=== PATIENT | female | born 1935 | race Caucasian/White ===

== ENCOUNTER → 2017-08-20 12:06 | Outpatient (CLI) | payer MEDICARE, BC ==
[2013-04-08 17:57] VITALS: BMI 27.5
[~2017-08-20 12:06] MED LIST: BAYER CHEWABLE81 MG PO; CALTRATE-600600 MG PO; CATAPRES0.1 MG; CATAPRES0.1 MG PO; CELEXA20 MG PO; FOLATE0.4 MG PO; K-DUR20 MEQ; MACROBID100 MG PO; MILK OF MAGNESI30 ML PO; NEURONTIN 300300 MG; NEURONTIN 300300 MG PO; NEURONTIN600 MG; NORVASC5 MG PO; PREMARIN45 GM VG; SEPTRA DS TABLE1 TAB PO; SYNTHROID75 MCG PO; VALIUM5 MG
== END | disposition home or self-care (01) ==
LOC: D.RAD 12:06
DX: R13.10 Dysphagia, unspecified (principal)

== ENCOUNTER 2019-01-26 22:39 | Inpatient (IN) | payer MEDICARE, BC ==
[~2019-01-26] VITALS: Ht 162.6 cm; Wt 81.6 kg
[~2019-01-26 22:39] MED LIST changes: -VALIUM5 MG; +VALIUM5 MG PO
[2019-01-26 22:51] VITALS: BP 132/91
[2019-01-26 23:01] VITALS: BP 126/59
[2019-01-27] VITALS (7 sets, daily range): BP systolic 124–149; BP diastolic 46–58; Ht 162.6 cm; Wt 81.6 kg
[2019-01-27] LABS: BASOPHILS 0.1 % (0-2); EOSINOPHILS 0 % (0-7); HEMATOCRIT 38.8 % (36.0-48.0); HEMOGLOBIN 12.6 g/dL (12-16); IMMATURE GRANULOCYTES 0.2 % (0-5); LYMPHOCYTES 11.1 % (15-50); MCH 29.9 pg (26.0-34.0); MCHC 32.5 g/dL (31.0-37.0); MCV 92.2 fL (80.0-100.0); MEAN PLATELET VOLUME 10.5 fL (7.4-10.4); MONOCYTES 8.8 % (2-11); NEUTROPHILS 79.8 % (40-80); PLATELET COUNT 166 10x3/uL (130-400); RBC 4.21 10x6/uL (4.00-5.40); RDW 14.2 % (11.5-14.5); WBC 9.1 10x3/uL (4.8-10.8)
[2019-01-27 00:07] LABS: APTT 26.2 SECONDS (22.8-39.4); INR 1.09 (0.85-1.17); PROTIME 13.6 SECONDS (11.6-15.0)
[2019-01-27 00:11] LABS: ALBUMIN 3.2 g/dL (3.4-5.0); ANION GAP 9.7 mmol/L (8-16); BILIRUBIN - TOTAL 0.43 mg/dL (0.2-1.3); CALCIUM 8.7 mg/dL (8.5-10.1); CARBON DIOXIDE 28.2 mmol/L (21.0-32.0); POTASSIUM - SERUM 3.9 mmol/L (3.5-5.1); PROTEIN - SERUM 6.8 g/dL (6.4-8.2)
[2019-01-27] MEDS ORDERED: ACETAMINOPHEN325 MG PO (02:20)
[2019-01-27] MEDS ORDERED: KEFLEX250 MG PO (02:34)
[2019-01-27] MEDS ORDERED: NORVASC5 MG PO (02:35)
[2019-01-27] MEDS ORDERED: COZAAR100 MG PO (02:35)
[2019-01-27] MEDS ORDERED: LUBRICANT EYE D15 M2 EACH EYE (02:38)
[2019-01-27] MEDS ORDERED: ASPER-FLEX85 GM TOPICAL (02:39)
[2019-01-27] MEDS ORDERED: BUSPAR10 MG PO (02:40)
[2019-01-27] MEDS ORDERED: BUSPAR5 MG PO (02:41)
[2019-01-27] MEDS ORDERED: VITAMIN B-121000 MCG IM (02:44)
[2019-01-27] MEDS ORDERED: EFFEXOR XR75 MG PO (02:45)
[2019-01-27] MEDS ORDERED: HUMULIN R100 U/ML SC (02:47)
[2019-01-27] MEDS ORDERED: HYDROCHLOROTHIA25 MG PO (02:48)
--- NOTE | 2019-01-27 15:55 | MORECARE ---
CASE MANAGEMENT DISCHARGE SUMMARY PATIENT: FARIDA COOPER UNIT: [id number] ADM DATE: 01/27/19 AGE: 83 : 34 SEX: F ROOM/BED: D.2234 AUTHOR: LIZA BRASWELL PHYSICIAN: REFERRING PHYSICIAN: NORMA BOYLE MD DATE OF SERVICE: 01/27/19 Discharge Plan Patient Name: FARIDA COOPER Facility: [facility]:[place] : 1935 Planned Disposition: Nursing Facility [facility] Cert Anticipated Discharge Date: Discharge Date: Expected LOS: Initial Reviewer: [id number] Initial Review Date: 01/27/2019 Generated: 01/27/19 4:54 pm Comments DCP- Discharge Planning Updated by [id number]: Brook Chris on 01/27/19 2:[address] Patient Name: FARIDA COOPER Admission Status: ER Accout number: [id number] Admission Date: 01-27-2019 : 1935 Admission Diagnosis: Attending: NORMA BOYLE Current LOS: 1 Anticipated DC Date: Planned Disposition: Nursing Facility [facility] Cert Primary Insurance: MEDICARE A & B Discharge Planning Comments: CM met with patient and her daughter, Thomas. Thomas states she is also her POA when her brother is unable to be. She states her brother is not able to be POA at this time. States her mother has lived at [facility] in [facility] for about a year now. States she is able to sit in a wheelchair. States she is completely dependent on the nursing staff there. States the discharge plan is to return to [facility]. I informed her that if she needs therapy, they may have her admitted to the skilled therapy side of [facility] on discharge and she is agreeable to that. CM will continue to follow and assist with discharge planning/needs. Epic Willow Specialist: Brook Chris DCPIA - Discharge Planning Initial Assessment Updated by [id number]: Brook Chris on 01/27/19 3:51 pm * Is the patient Alert and Oriented? No * How many steps to enter\exit or inside your home? 0/0 * PCP Dr. Boyle outside of [place] Dr. Hawley at [facility] * Preadmission Environment Snf Custodial * Facility Name [facility] * ADLs Total Dependent * Other Equipment All equipment provided by [facility] * List name and contact numbers for known caregivers / representatives who currently or will assist patient after discharge: Thomas Laurent - DTR - [phone] * Verbal permission to speak to the caregivers and representatives has been obtained from the patient. N/A * Community resources currently utilized None * Additional services required to return to the preadmission environment? No * Can the patient safely return to the preadmission environment? Yes * Has this patient been hospitalized within the prior 30 days at any hospital? No Coverage Notice Reviewer: [id number] Ramona Chris Notice Issued Date-Time: 01/27/2019 15:46 Notice Type: Patient Choice Letter Notice Delivered To: Family Member Relationship to Patient: Daughter Scrap Breaker Name: Thomas Laurent Delivery Method: HAND - Hand Delivered Naida Days: Prior Verbal Notification: Recipient Understood Notice: Yes Recipient Signature: Yes Med Rec Note Co-signed by Attending: Coverage Notice Comment: [facility] for [facility] Patient Name: FARIDA COOPER Page [id number] at 1555 All edits/amendments must be made on the electronic document DICTATION DATE: 01/27/191553 GRADES 9 12 TUTOR: MAU 01/27/191553 RPT#: [id number] DC DATE: STATUS: ADM IN [facility] [address] [place] [address] END OF REPORT
[2019-01-27 23:07] LABS: APPEARANCE CLOUDY (CLEAR); BACTERIA MANY /hpf (NONE SEEN); BILIRUBIN NEGATIVE (NEGATIVE); COLOR YELLOW (YELLOW); EPITHELIAL CELLS NSEEN /hpf (0-5); GLUCOSE NEGATIVE (NEGATIVE); KETONE NEGATIVE (NEGATIVE); NITRITE POSITIVE (NEGATIVE); PROTEIN NEGATIVE (NEGATIVE); SPECIFIC GRAVITY 1.015 (1.005-1.020); UROBILINOGEN NORMAL (NORMAL); WHITE CELLS - URINE >50 /hpf (0-5)
[2019-01-27 23:08] LABS: MUCUS >1+ /lpf (NONE SEEN)
[2019-01-28] VITALS (11 sets, daily range): BP systolic 125–193; BP diastolic 48–73
[2019-01-28 07:08] LABS: CALC OSMOLALITY 285 mosm/kg (275-300); CALCIUM 8.5 mg/dL (8.5-10.1); CARBON DIOXIDE 23.6 mmol/L (21.0-32.0); CHLORIDE - SERUM 106 mmol/L (98-107); CREATININE - SERUM 0.7 mg/dL (0.6-1.3); GLUCOSE 130 mg/dL (74-106); POTASSIUM - SERUM 4.8 mmol/L (3.5-5.1); SODIUM 141 mmol/L (136-145); T4 THYROXIN - FREE 1.36 ng/dL (0.76-1.46); THYROID STIMULATING HORMONE 0.81 uIU/mL (0.36-3.74); UREA NITROGEN 22 mg/dL (7-18); eGFR NON AFRICAN AMERICAN 84 mL/min (90-120)
[2019-01-28 07:19] LABS: BASOPHILS 0.2 % (0-2); EOSINOPHILS 0.5 % (0-7); HEMATOCRIT 38.5 % (36.0-48.0); HEMOGLOBIN 12.5 g/dL (12-16); IMMATURE GRANULOCYTES 0.4 % (0-5); LYMPHOCYTES 11.1 % (15-50); MCH 30.6 pg (26.0-34.0); MCHC 32.5 g/dL (31.0-37.0); MCV 94.1 fL (80.0-100.0); MEAN PLATELET VOLUME 11.6 fL (7.4-10.4); MONOCYTES 11.4 % (2-11); NEUTROPHILS 76.4 % (40-80); RBC 4.09 10x6/uL (4.00-5.40); RDW 14.2 % (11.5-14.5); WBC 8.5 10x3/uL (4.8-10.8)
[2019-01-28 07:20] LABS: PLATELET COUNT 120 10x3/uL (130-400)
--- NOTE | 2019-01-28 08:25 | HP ---
PATIENT: FARIDA COOPER MEDICAL RECORD: [id number] ACCOUNT: [id number] LOCATION:D.MS Mims4 : [birth year] ADMISSION DATE: 01/27/19 PCP: NORMA COPELAND MD HISTORY AND PHYSICAL EXAMINATION REASON FOR ADMISSION: Fall with right arm pain. HISTORY OF PRESENT ILLNESS: The patient is an 83-year-old female with history of transverse myelitis and Alzheimer dementia. She is full care at [facility]. She does not usually ambulate. She apparently fell at the longterm last night and was brought to the ED after a mobile x-ray showed a right proximal humeral fracture. There has been no recent fever. Her daughter states she has been in fairly good health except for her chronic illnesses. She has had no recent fever. 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 PAST SURGICAL HISTORY: Open reduction and internal fixation of the right radius in September of 2010. FAMILY HISTORY: One brother and sister with cancer. SOCIAL ISSUES: She is in [facility] for many years. She has need for total ADL help and assistance. She walks minimally. She has a daughter living in [facility], who cares for her. She is a nonsmoker and nondrinker. ALLERGIES: PENICILLIN, QUINOLONE, SULFA, SULFONAMIDE, DEMEROL, PROCHLORPERAZINE, COMPAZINE. CURRENT MEDICATIONS: Aspirin 81 mg b.i.d., Caltrate 600 mg b.i.d., Celexa 20 mg daily, clonidine 0.1 mg p.o. b.i.d., folic acid 0.4 mg p.o. b.i.d., K-Dur 10 mEq b.i.d., milk of magnesia 30 cc p.r.n. constipation, Neurontin 300 mg p.o. t.i.d., Norvasc 5 mg daily, Premarin 0.625 mg vaginal cream applied daily, Synthroid 75 mcg p.o. q.a.m., cephalexin 250 mg p.o. daily, losartan 100 mg p.o. daily, vitamin B12 one cc IM monthly, Valium 2 mg p.o. t.i.d., venlafaxine 75 mg p.o. daily, HCTZ 25 mg p.o. q.a.m., Tylenol 325 mg every 6 hours p.r.n. REVIEW OF SYSTEMS: CONSTITUTIONAL: No recent general fatigue or weight loss. HEENT: No recent visual change, sinus congestion, or sore throat. She has chronic hearing difficulty. RESPIRATORY: No SOB or cough. CARDIAC: No palpitations, chest pain, or increasing edema. GASTROINTESTINAL: No nausea, vomiting, change in stools, blood per rectum. GENITOURINARY: Incontinence. GYNECOLOGICAL: No vaginal bleeding. INTEGUMENT: No recent rash or skin lesions. NEUROLOGIC: She has extremely poor memory. Due to remote stroke, she has weakness in both of her lower extremities. MUSCULOSKELETAL: She has pain in her right proximal humerus currently with HISTORY AND PHYSICAL [id number] FARIDA COOPER N marked edema and bruising. She has crepitus in both knees with flexion and extension. NEUROLOGICAL: She has poor memory. No history of seizures. History of transverse myelitis resulting in gait disturbance. Remote CVA resulting in gait disturbance, poor balance issues. PSYCHIATRIC: No recent depressed mood. PHYSICAL EXAMINATION: VITAL SIGNS: Temperature 97 Fahrenheit orally, pulse 70 and regular, respirations 21, blood pressure 130/91, sat 96% on room air. GENERAL: The patient is awake, pleasant and appears to recognize me. She is unaware of her surroundings. HEENT: Normocephalic. Eyes are clear, nonicteric. Oropharynx unremarkable. NECK: Supple, without bruits. CHEST: Distant breath sounds without wheeze or rales. HEART: Regular rate and rhythm, without MGR. PMI appropriate. BREASTS: Symmetrical. ABDOMEN: Soft and nontender. PELVIC: Deferred. EXTREMITIES: She has marked swelling of the right proximal humerus and some bruising. Pain with any movement. She has had good professor of business administration bilaterally. Lower extremity exam shows 2+ bipedal edema, 1+ pretibial edema to the knees bilaterally. SKIN: No obvious ulceration. NEUROLOGIC: The patient is oriented to person, but not to place and time. She does recognize her daughter and me. She has no obvious motor deficit except for generalized motor weakness. LABORATORY DATA: X-ray shows a right proximal humeral fracture with comminution. Chest x-ray has not been ordered. EKG shows sinus rhythm, poor anterior R-wave, no old EKG to compare. White count is 9000, H&H of 12.6 and 38.6, platelet count is 166,000. Chemistry is normal except for BUN of 33, creatinine of 1. INR is 1.09. UA not ordered. ASSESSMENT: Fall with right proximal humeral fracture, history of cerebrovascular accident with gait disturbance, Alzheimer dementia, hypertension, prerenal azotemia, history of nephrolithiasis, urinary incontinence, hypothyroidism. PLAN: I discussed with daughter the need for orthopedic consultation and possible ORIF. The daughter reiterates her DNR status. She is moderate risk for general anesthesia due to her advanced age, abnormal EKG, though she has no prior known history of myocardial infarction. Dr. Burrows will be consulted. TRANSINT:[id number] Voice Confirmation ID: [id number] DOCUMENT ID: [id number] HISTORY AND PHYSICAL [id number] FARIDA COOPER TIMOTHY MD at 0825 CC: [id number] DICTATION DATE: 01/27/19631 KNITTING DEMONSTRATOR: 01/27/19 0732 ADM IN [facility] [address] [place] [address]
[2019-01-29] VITALS (10 sets, daily range): BP systolic 149–168; BP diastolic 54–74
[2019-01-29 06:17] LABS: BASOPHILS 0.2 % (0-2); EOSINOPHILS 0 % (0-7); HEMATOCRIT 32.3 % (36.0-48.0); HEMOGLOBIN 10.4 g/dL (12-16); IMMATURE GRANULOCYTES 0.2 % (0-5); LYMPHOCYTES 7.4 % (15-50); MCH 29.9 pg (26.0-34.0); MCHC 32.2 g/dL (31.0-37.0); MCV 92.8 fL (80.0-100.0); MONOCYTES 11.5 % (2-11); NEUTROPHILS 80.7 % (40-80); RBC 3.48 10x6/uL (4.00-5.40); WBC 9.5 10x3/uL (4.8-10.8)
[2019-01-29 06:25] LABS: ANION GAP 12.6 mmol/L (8-16); CALCIUM 8.1 mg/dL (8.5-10.1); CARBON DIOXIDE 25.8 mmol/L (21.0-32.0)
[2019-01-29 06:26] LABS: CREATININE - SERUM 0.9 mg/dL (0.6-1.3); PLATELET COUNT 147 10x3/uL (130-400); POTASSIUM - SERUM 3.4 mmol/L (3.5-5.1)
--- NOTE | 2019-01-29 06:53 | OP ---
PATIENT NAME: FARIDA HINSON MEDICAL RECORD: [id number] :34 LOCATION:D.MS Jones2234 ADMISSION DATE:01/27/19 SURGEON: MACARIO REILLY DO DATE OF OPERATION: 01/28/2019 PROCEDURE PERFORMED: Right reverse total shoulder arthroplasty for fracture. PREOPERATIVE DIAGNOSIS: Comminuted displaced right proximal humeral shaft and head fracture. POSTOPERATIVE DIAGNOSIS: Comminuted displaced right proximal humeral shaft and head fracture. INDICATIONS: Ms. Hinson is an 83-year-old demented female who fell 2 nights ago and came to the ER, brought in by her family and made sure she is a DO NOT RESUSCITATE, but they wanted her out of pain and I informed him that due to the fracture being so comminuted, we had very limited options, one of them being reverse total shoulder, would give the most function and decreasing amount of pain but that was risky due to her frail bones. They were okay with that plan and were aware of the risk of infection, bleeding, damage to nerves and vessels and continued loss of function of the right arm, her dominant arm and they signed a consent. SURGEON: Macario Reilly DO DESCRIPTION OF PROCEDURE: The patient was taken to the operative suite after given a block by anesthesia, laid in the supine position, sedated and intubated and placed over on the beach chair and positioned. The right shoulder was then prepped and draped in sterile fashion. She was given 900 mg of clindamycin preoperatively. The right shoulder after being prepped and draped, a timeout was performed and everyone was in agreement with the correct site, side, the patient, and the procedure. The incision then began over the deltopectoral interval. Careful dissection was made down to it. The pec was peeled off of the fracture site. She had a large chunk of bone that had been peeled off there. The humeral shaft went up into the surgical neck as well as a very comminuted rest of the shaft of the proximal humerus that extended up into the greater tuberosity. The subscapularis tendon was tagged, the bicep tendon was tagged 1st and tenodesed to the pec. This was then released and the subscap was tagged and released off the humeral head as well as the supraspinatus. The head was fractured as well through the greater tuberosity and the shaft fracture extended up into the surgical neck. The head was then removed and looking at the shaft and the 4 different pieces of the shaft that was left, we reamed and put a trial in the shaft to see if a stem would be long enough, decided to go with a longer stem, 194 stem to cement in. The glenoid was then exposed and prepared. The labrum was removed and a centering pin was placed and then the drill was made for the baseplate. The baseplate was then packed into place and the center screw was placed, a 25 cm screw. The peripheral screws were then put in at 25 and two 20s; 25 was superior-anterior and the 20s were superior-posterior and inferior- posterior locked in. The glenosphere was then impacted on and then went to work on the shaft. The shaft was reamed to 7 and pushed some cement then was mixed and pushed down the shaft as well as possible and then put it around the implant and held it in 20 degrees of retroversion and an estimate on the height due to the fracture fragment was very difficult, held in position while the cement hardened and then cables had been passed prior to this around the comminuted proximal shaft fracture cable. Once cement harden OPERATIVE REPORT [id number] FARIDA HINSON N was tightened down over the shaft and then a second cable was used more proximal to that at 16 and 20 was more distal. Once these were tightened down and held, the large fracture fragments around the stem at that time reduced in nicely where part of the pec was attached to. The trial was then put on and reduced, had very good tension on the conjoined tendon as well as the deltoid and good range of motion was very stable. It could not shuck and be dislocated. This was then dislocated and removed and then the actual implant was used to constraine poly and this was impacted into place and then reduced and had very good range of motion, it is very stable and the conjoined tendon was in good tension as well. The site was then thoroughly irrigated. Any bone fragments that were left removed at that time and then a Surgicel powder and vancomycin and tobramycin powder were placed in the wound and the interval was closed, deltopectoral interval was closed with #1 Vicryl in simple fashion and then 2-0 Vicryl in interrupted fashion and then Prineo glue was placed on the skin. Telfa and Tegaderm were then placed over that. After the glue had dried, the patient was then awakened, put in a sling and taken to recovery in stable condition. Blood loss approximately 400 mL. COMPLICATIONS: None. TRANSINT:[id number] Voice Confirmation ID: [id number] DOCUMENT ID: [id number] MACARIO REILLY DO at 0653 CC: [id number] DICTATION DATE: 01/28/191843 RINKMAN: 01/29/19 0023 ADM IN [facility] [address] [place] [address]
[2019-01-30] VITALS: BP 161/71
[2019-01-30 03:00] VITALS: BP 122/77
[2019-01-30 05:43] LABS: HEMOGLOBIN 10.5 g/dL (12-16); MCHC 32.8 g/dL (31.0-37.0); MCV 91.4 fL (80.0-100.0); MEAN PLATELET VOLUME 10.8 fL (7.4-10.4); RBC 3.5 10x6/uL (4.00-5.40); RDW 14.1 % (11.5-14.5); WBC 11.3 10x3/uL (4.8-10.8)
[2019-01-30 09:10] VITALS: BP 185/61
[2019-01-30 13:33] VITALS: BP 153/63
[2019-01-30 16:49] VITALS: BP 155/68
[2019-01-30 18:00] VITALS: BP 139/64
[2019-01-31 01:06] VITALS: BP 145/61
[2019-01-31 05:52] LABS: ANION GAP 11.5 mmol/L (8-16); CALCIUM 8.1 mg/dL (8.5-10.1); CARBON DIOXIDE 26.8 mmol/L (21.0-32.0); CREATININE - SERUM 0.8 mg/dL (0.6-1.3); POTASSIUM - SERUM 3.3 mmol/L (3.5-5.1)
[2019-01-31 05:56] VITALS: BP 150/60
[2019-01-31 07:22] LABS: BASOPHILS 0.3 % (0-2); EOSINOPHILS 0 % (0-7); HEMATOCRIT 29.2 % (36.0-48.0); HEMOGLOBIN 9.5 g/dL (12-16); IMMATURE GRANULOCYTES 0.1 % (0-5); MCH 30.1 pg (26.0-34.0); MCHC 32.5 g/dL (31.0-37.0); MCV 92.4 fL (80.0-100.0); MEAN PLATELET VOLUME 10.9 fL (7.4-10.4); MONOCYTES 11.8 % (2-11); NEUTROPHILS 73.8 % (40-80); PLATELET COUNT 161 10x3/uL (130-400); RBC 3.16 10x6/uL (4.00-5.40); RDW 14.2 % (11.5-14.5); WBC 7.7 10x3/uL (4.8-10.8)
[2019-01-31 09:13] VITALS: BP 161/63
[2019-01-31 12:00] VITALS: BP 149/65
--- NOTE | 2019-01-31 12:58 | MORECARE ---
CASE MANAGEMENT DISCHARGE SUMMARY PATIENT: FARIDA COOPER UNIT: [id number] ADM DATE: 01/27/19 AGE: 83 : 34 SEX: F ROOM/BED: D.2234 AUTHOR: LIZA BRASWELL PHYSICIAN: REFERRING PHYSICIAN: NORMA BOYLE MD DATE OF SERVICE: 01/31/19 Discharge Plan Patient Name: FARIDA COOPER Facility: [facility]:[place] : 1935 Planned Disposition: Nursing Facility T[facility] Cert Anticipated Discharge Date: Discharge Date: Expected LOS: Initial Reviewer: [email or web address] Initial Review Date: 01/27/2019 Generated: 01/31/19 1:58 pm Comments DCP- Discharge Planning Updated by [id number]: Brook Chris on 01/27/19 2:[address] Patient Name: FARIDA COOPER Admission Status: ER Accout number: [id number] Admission Date: 01-27-2019 : 1935 Admission Diagnosis: Attending: NORMA BOYLE Current LOS: 1 Anticipated DC Date: Planned Disposition: Nursing Facility [facility] Cert Primary Insurance: MEDICARE A & B Discharge Planning Comments: CM met with patient and her daughter, Thomas. Thomas states she is also her POA when her brother is unable to be. She states her brother is not able to be POA at this time. States her mother has lived at [facility] in [facility] for about a year now. States she is able to sit in a wheelchair. States she is completely dependent on the nursing staff there. States the discharge plan is to return to [facility]. I informed her that if she needs therapy, they may have her admitted to the skilled therapy side of [facility] on discharge and she is agreeable to that. CM will continue to follow and assist with discharge planning/needs. Veneer Sheet Repairer: Brook Chris DCPIA - Discharge Planning Initial Assessment Updated by [id number]: Brook Chris on 01/27/19 3:51 pm * Is the patient Alert and Oriented? No * How many steps to enter\exit or inside your home? 0/0 * PCP Dr. Boyle outside of [place] Dr. Hawley at [facility] * Preadmission Environment Fpc Detention * Facility Name [facility] * ADLs Total Dependent * Other Equipment All equipment provided by [facility] * List name and contact numbers for known caregivers / representatives who currently or will assist patient after discharge: Thomas Laurent - DTR - [phone] * Verbal permission to speak to the caregivers and representatives has been obtained from the patient. N/A * Community resources currently utilized None * Additional services required to return to the preadmission environment? No * Can the patient safely return to the preadmission environment? Yes * Has this patient been hospitalized within the prior 30 days at any hospital? No External Providers External Provider: [facility] Next Contact Date: Service Request Date: Service Type: Resolution: Reviewer: Comments: Coverage Notice Reviewer: [id number] Ramona Chris Notice Issued Date-Time: 01/27/2019 15:46 Notice Type: Patient Choice Letter Notice Delivered To: Family Member Relationship to Patient: Daughter Plastic Roller Name: Thomas Laurent Delivery Method: HAND - Hand Delivered Naida Days: Prior Verbal Notification: Recipient Understood Notice: Yes Recipient Signature: Yes Med Rec Note Co-signed by Attending: Coverage Notice Comment: [facility] for [facility] Last DP export: 01/27/19 2:54 p Patient Name: FARIDA COOPER Page [id number] at 1258 All edits/amendments must be made on the electronic document DICTATION DATE: 01/31/19 1257 RESIDENTIAL CAREGIVER: MAU 01/31/19 1257 RPT#: [id number] DC DATE: STATUS: ADM IN [facility] [address] [place] [address] END OF REPORT
[2019-01-31 21:14] VITALS: BP 173/69
[2019-02-01 05:02] VITALS: BP 153/57
[2019-02-01 06:41] LABS: ANION GAP 9.4 mmol/L (8-16); CALCIUM 8.8 mg/dL (8.5-10.1); CARBON DIOXIDE 30.1 mmol/L (21.0-32.0); CREATININE - SERUM 0.8 mg/dL (0.6-1.3); POTASSIUM - SERUM 3.5 mmol/L (3.5-5.1)
[2019-02-01] MEDS ORDERED: MACROBID100 MG PO (07:02)
[2019-02-01] MEDS ORDERED: NORCO-10 PO (07:04)
[2019-02-01] MEDS ORDERED: HYDROCHLOROTH12.5 M1 PO (07:04)
[2019-02-01 08:53] VITALS: BP 183/70
--- NOTE | 2019-02-01 09:48 | MORECARE ---
CASE MANAGEMENT DISCHARGE SUMMARY PATIENT: FARIDA COOPER UNIT: [id number] ADM DATE: 01/27/19 AGE: 83 : 34 SEX: F ROOM/BED: D.2234 AUTHOR: LIZA BRASWELL PHYSICIAN: REFERRING PHYSICIAN: NORMA BOYLE MD DATE OF SERVICE: 02/01/19 Discharge Plan Patient Name: FARIDA COOPER Facility: [facility]:[place] : 1935 Planned Disposition: Nursing Facility [facility] Cert Anticipated Discharge Date: Discharge Date: Expected LOS: Initial Reviewer: [id number] Initial Review Date: 01/27/2019 Generated: 02/01/19 10:48 am Comments DCP- Discharge Planning Updated by [email or web address]: Brook Aliceawill on 02/01/19 8:[address] Received discharge order. I called [facility] and spoke to Vaishali. She will need to go via ambulance, she has not sat up, except to side of bed with max assist X2 and unsteady sitting balance. DC clinical faxed to [facility], she will go to a skilled bed. Daughter is at bedside, IMM explained and signed. CM will continue to follow and assist with discharge planning/needs. DCP- Discharge Planning Updated by [id number]: Brook Aliceawill on 01/31/19 11:[address] I called [facility] and spoke to Vaishali and informed her that the physician has ordered consult for skilled at [facility] (she is currently in a terminal worker bed). Vaishali states that they will probably place in senior care when ready to come back to facility. Updated clinical faxed. CM will continue to follow and assist with discharge planning/needs. DCP- Discharge Planning Updated by [id number]: Brook Aliceawill on 01/27/19 2:[address] Patient Name: FARIDA COOPER Admission Status: ER Accout number: [id number] Admission Date: 01-27-2019 : 1935 Admission Diagnosis: Attending: NORMA BOYLE Current LOS: 1 Anticipated DC Date: Planned Disposition: Nursing Facility [facility] Cert Primary Insurance: MEDICARE A & B Discharge Planning Comments: CM met with patient and her daughter, Thomas. Thomas states she is also her POA when her brother is unable to be. She states her brother is not able to be POA at this time. States her mother has lived at [facility] in [facility] for about a year now. States she is able to sit in a wheelchair. States she is completely dependent on the nursing staff there. States the discharge plan is to return to [facility]. I informed her that if she needs therapy, they may have her admitted to the skilled therapy side of [facility] on discharge and she is agreeable to that. CM will continue to follow and assist with discharge planning/needs. Director Part: Brook Chris DCPIA - Discharge Planning Initial Assessment Updated by [email or web address]: Brook Chris on 01/27/19 3:51 pm * Is the patient Alert and Oriented? No * How many steps to enter\exit or inside your home? 0/0 * PCP Dr. Boyle outside of [place] Dr. Hawley at [facility] * Preadmission Environment Sales Representative [facility] * Facility Name [facility] * ADLs Total Dependent * Other Equipment All equipment provided by [facility] * List name and contact numbers for known caregivers / representatives who currently or will assist patient after discharge: Thomas Laurent - DTR - [phone] * Verbal permission to speak to the caregivers and representatives has been obtained from the patient. N/A * Community resources currently utilized None * Additional services required to return to the preadmission environment? No * Can the patient safely return to the preadmission environment? Yes * Has this patient been hospitalized within the prior 30 days at any hospital? No Coverage Notice Reviewer: [id number] Ramona Chris Notice Issued Date-Time: 01/27/2019 15:46 Notice Type: Patient Choice Letter Notice Delivered To: Family Member Relationship to Patient: Daughter Clearing Distribution Clerk Name: Thomas Laurent Delivery Method: HAND - Hand Delivered Naida Days: Prior Verbal Notification: Recipient Understood Notice: Yes Recipient Signature: Yes Med Rec Note Co-signed by Attending: Coverage Notice Comment: [facility] for [facility] Reviewer: [id number] Ramona Chris Notice Issued Date-Time: 02/01/2019 9:42 Notice Type: IM Discharge Notice Notice Delivered To: Family Member Relationship to Patient: Daughter Clearing Distribution Clerk Name: Thomas Laurent Delivery Method: HAND - Hand Delivered Naida Days: Prior Verbal Notification: Recipient Understood Notice: Yes Recipient Signature: Yes Med Rec Note Co-signed by Attending: Coverage Notice Comment: IMM delivered, signed, given, copy placed in MR Last DP export: 01/31/19 11:58 a Patient Name: FARIDA COOPER Page 41141 at 0948 All edits/amendments must be made on the electronic document DICTATION DATE: 02/01/19947 DREDGE CAPTAIN: MAU 02/01/19947 RPT#: [id number] DC DATE: STATUS: ADM IN [facility] [address] [place] [address] END OF REPORT
== END 2019-02-01 11:58 | DRG 483 ==
LOC: D.ER 22:39 → D.MS 01-27 00:42
PROVIDERS: Emergency Medicine; Orthopaedic Surgery; ADMIT Family Medicine; ATTEND Family Medicine
PROC: 0RRJ00Z Replacement of Right Shoulder Joint with Reverse Ball and Socket Synthetic Substitute, Open Approach (ICD-10-PCS; principal; 2019-01-28 15:15)
DX: S42.351A Displaced comminuted fracture of shaft of humerus, right arm, initial encounter for closed fracture (principal); N39.0 Urinary tract infection, site not specified; G37.3 Acute transverse myelitis in demyelinating disease of central nervous system; S42.291A Other displaced fracture of upper end of right humerus, initial encounter for closed fracture; W19.XXXA Unspecified fall, initial encounter; B96.89 Other specified bacterial agents as the cause of diseases classified elsewhere; Z16.30 Resistance to unspecified antimicrobial drugs; I10 Essential (primary) hypertension; G30.9 Alzheimer's disease, unspecified; F02.80 Dementia in other diseases classified elsewhere, unspecified severity, without behavioral disturbance, psychotic disturbance, mood disturbance, and anxiety; E78.5 Hyperlipidemia, unspecified; R40.0 Somnolence; E03.9 Hypothyroidism, unspecified; K21.9 Gastro-esophageal reflux disease without esophagitis; E87.6 Hypokalemia; Z66 Do not resuscitate; Z86.73 Personal history of transient ischemic attack (TIA), and cerebral infarction without residual deficits